=== PATIENT | female | born 1985 | race Caucasian/White ===

== ENCOUNTER 2016-12-02 11:17 | Emergency (ER) | payer MEDICARE ==
[~2016-12-02 11:17] MED LIST: AMOXICILLIN 50500 MG PO; LAMICTAL CD5 MG; PEPCID 20MG TAB20 MG PO; WELLBUTRIN
== END 2016-12-02 12:30 | disposition home or self-care (01) ==
LOC: ED 11:17
DX: S93.492A Sprain of other ligament of left ankle, initial encounter (principal); X50.1XXA Overexertion from prolonged static or awkward postures, initial encounter

== ENCOUNTER 2017-05-04 01:51 | Emergency (ER) | payer MEDICARE ==
[~2017-05-04] VITALS: Ht 180.3 cm; Wt 106.9 kg
[2017-05-04 04:27] VITALS: BP 124/78
== END 2017-05-04 04:27 | disposition home or self-care (01) ==
LOC: ED 01:51
DX: R14.1 Gas pain (principal); R10.11 Right upper quadrant pain; R11.0 Nausea; R63.0 Anorexia
CPT/HCPCS: J2765; J7030

== ENCOUNTER 2017-10-06 12:02 | Emergency (ER) | payer MEDICARE ==
[2017-10-06] MEDS ORDERED: GOOD NEIGHBOR200 M1 PO (12:15)
[2017-10-06 12:40] LABS: HEMATOCRIT 45.9 % (37.0-47.0); HEMOGLOBIN 14.9 g/dL (12.5-16.0); MEAN CELL VOLUME 95 fl (78-100); MEAN CORPUSCULAR HEMOGLOBIN 31 pg (27-31); MEAN CORPUSCULAR HGB CONC 33 g/dL (33-37); PLATELET COUNT 293 K/mm3 (130-400); RED BLOOD COUNT 4.83 M/mm3 (4.10-5.30); RED CELL DISTRIBUTION WIDTH 13.5 % (11.5-14.5); WHITE BLOOD COUNT 4.2 K/mm3 (4.8-10.8)
[2017-10-06 12:49] LABS: BUN/CREATININE RATIO 9.9 (6.0-26.0); CALCIUM 8.6 mg/dL (8.4-10.2); POTASSIUM 3.7 mmol/L (3.6-5.0)
[2017-10-06 13:02] LABS: LYMPHOCYTE 37 % (20-51); NEUTROPHILS 44 % (42-75)
[2017-10-06 13:03] LABS: MONOCYTE 19 % (3-10)
[2017-10-06] MEDS ORDERED: GUAIFEN-CODEIN118 ML PO (13:59)
[2017-10-06 14:21] VITALS: BP 130/90
== END 2017-10-06 14:14 | disposition home or self-care (01) ==
LOC: ED 12:02
PROVIDERS: Family Medicine
DX: J06.9 Acute upper respiratory infection, unspecified (principal)

== ENCOUNTER 2018-03-04 14:35 | Emergency (ER) | payer MEDICARE ==
[~2018-03-04] VITALS: Ht 180.3 cm; Wt 98.2 kg
[~2018-03-04 14:35] MED LIST changes: +GOOD NEIGHBOR200 M1 PO; +GUAIFEN-CODEIN118 ML PO
[2018-03-04] MEDS ORDERED: GOOD NEIGHBOR200 M3 PO (15:32)
[2018-03-04 15:39] LABS: EOS # 0.2 (0.04-0.40); EOS % 2.5 % (1.0-5.0); HEMATOCRIT 39.4 % (37.0-47.0); HEMOGLOBIN 12.9 g/dL (12.5-16.0); MEAN CELL VOLUME 98 fl (78-100); MEAN CORPUSCULAR HEMOGLOBIN 32 pg (27-31); MEAN CORPUSCULAR HGB CONC 33 g/dL (33-37); MEAN PLATELET VOLUME 10.2 fl (7.4-10.4); MONO # 0.7 (0.20-0.80); NEU # 3.1 (1.40-6.50); PLATELET COUNT 303 K/mm3 (130-400); RED BLOOD COUNT 4.04 M/mm3 (4.10-5.30); RED CELL DISTRIBUTION WIDTH 12.8 % (11.5-14.5)
[2018-03-04 15:48] LABS: ALBUMIN 3.8 g/dL (3.5-5.0); BUN/CREATININE RATIO 11.8 (6.0-26.0); CALCIUM 8.7 mg/dL (8.4-10.2); POTASSIUM 3.7 mmol/L (3.6-5.0); TOTAL BILIRUBIN 0.5 mg/dL (0.2-1.3); TOTAL PROTEIN 7.6 g/dL (6.3-8.2)
[2018-03-04 16:23] LABS: URINE APPEARANCE HAZY; URINE BILIRUBIN NEGATIVE (NEGATIVE); URINE COLOR YELLOW; URINE GLUCOSE NEGATIVE (NEGATIVE); URINE KETONE 1+ (NEGATIVE); URINE NITRATE NEGATIVE (NEGATIVE); URINE PROTEIN(semi-quant) NEGATIVE (NEGATIVE); URINE UROBILINOGEN NORMAL (NORMAL)
[2018-03-04 16:24] LABS: URINE BLOOD TRACE (NEGATIVE); URINE LEUKOCYTE ESTERASE TRACE (NEGATIVE); URINE MUCUS PRESENT (NOT PRESENT)
[2018-03-04] MEDS ORDERED: LEVSIN-SL0.125 MG SL (16:40)
[2018-03-04 16:43] VITALS: BP 129/83
== END 2018-03-04 16:49 | disposition home or self-care (01) ==
LOC: ED 14:35
PROVIDERS: Physician Assistant
DX: K52.9 Noninfective gastroenteritis and colitis, unspecified (principal); N91.2 Amenorrhea, unspecified

== ENCOUNTER 2018-06-14 11:03 | Emergency (ER) | payer MEDICARE, MEDICAID ==
[~2018-06-14] VITALS: Ht 180.3 cm; Wt 90.9 kg
[~2018-06-14 11:03] MED LIST changes: +GOOD NEIGHBOR200 M3 PO; +LEVSIN-SL0.125 MG SL
[2018-06-14] MEDS ORDERED: AMOXICILLIN 50500 MG (11:27)
[2018-06-14] MEDS ORDERED: TESSALON PERLE100 M1 PO ×2 (15:08→15:10)
[2018-06-14 15:50] VITALS: BP 120/81
== END 2018-06-14 15:50 | disposition home or self-care (01) ==
LOC: ED 11:03
DX: R05 Cough (principal); F17.200 Nicotine dependence, unspecified, uncomplicated
CPT/HCPCS: J1040

== ENCOUNTER 2019-03-14 22:50 | Emergency (ER) | payer MEDICARE, MEDICAID ==
[~2019-03-14] VITALS: Ht 180.3 cm; Wt 99.1 kg
[~2019-03-14 22:50] MED LIST changes: +AMOXICILLIN 50500 MG; +TESSALON PERLE100 M1 PO
[2019-03-14 23:15] VITALS: BP 133/89
== END 2019-03-15 00:41 | disposition home or self-care (01) ==
LOC: ED 22:50
DX: S93.515A Sprain of interphalangeal joint of left lesser toe(s), initial encounter (principal); F99 Mental disorder, not otherwise specified; F17.210 Nicotine dependence, cigarettes, uncomplicated; W16.522A Jumping or diving into swimming pool striking bottom causing other injury, initial encounter; Y93.11 Activity, swimming; Y92.34 Swimming pool (public) as the place of occurrence of the external cause